=== PATIENT | female | born 1995 | race Caucasian/White ===

== ENCOUNTER 2021-07-05 12:22 | Emergency (ER) | payer SELFPAY ==
--- NOTE | 2021-07-05 12:31 | ED.FEMALEGU ---
HPI - Female Genitourinary General Chief complaint: Urogenital-Female Stated complaint: Rt Abdominal Pain,Painful Urination Time Seen by Provider: 07/05/21 12:26 Source: patient and RN notes reviewed Mode of arrival: ambulatory History of Present Illness HPI Narrative: This is a 26-year-old female with a presented to urgent care with complaints of abdominal pain and painful urination for the last 4 days. Patient does have a history of chronic UTI and have been treated in the past for urinary tract infection. Patient did not do anything at home to relieve her symptoms. The patient denies SOB, CP, palpitation, extremity numbness, lightheadedness, dizziness, constipation, hematuria diarrhea, chills, or fever. Patient positive for UTI MD elicited complaint: dysuria and UTI Related Data Allergies Allergy/AdvReac Type Severity Reaction Status Date / Time ondansetron Allergy Intermediate THROAT Verified 04/14/19 13:06 SWELLING citalopram Allergy Unknown Verified 10/23/11 10:53 eletriptan Allergy Unknown Verified 05/08/12 16:16 sumatriptan Allergy Unknown Verified 05/09/12 11:54 Review of Systems Review of Systems: A 14 organ system Review of Systems was performed and pertinent positives included in the HPI, otherwise remaining ROS is negative. [facility] Family History Family History (Updated 07/05/21 @ 12:32 by SVETLANA Xavier) Other Family history non-contributory Social History Social History Smoking status: Never smoker Exam Narrative: GENERAL: This is a well-nourished, well-developed patient, in no apparent distress. HEAD: normocephalic, atraumatic. EYES: PERRL. Sclera clear/white. Vision is grossly intact. EARS: External ears normal, auditory canals clear and without drainage, TMs normal without perforation. Hearing grossly intact. NOSE: External nose normal with no obvious nasal discharge, nares without redness, no rhinorrhea. THROAT: Mucous membranes moist, posterior pharynx clear. NECK: Neck supple, non-tender without lymphadenopathy, masses or thyromegaly. CARDIOVASCULAR: Regular rate and rhythm without murmurs, gallops, or rubs. RESPIRATORY: Clear to auscultation. Breath sounds equal bilaterally. No wheezes, rales, or rhonchi. GASTROINTESTINAL: Abdomen soft, non-tender, nondistended. Bowel sounds are active. No hepato-splenomegaly, or palpable masses. No guarding. CVA negative SKIN: warm, intact with no suspicious lesions or rash, good texture and turgor. NEURO: awake, alert, and oriented to person, place and time. There were no obvious focal neurologic abnormalities. Steady gait EXTREMITIES: Normal range of motion. No edema. No calf tenderness. Negative Homans sign bilaterally. BACK: Nontender without deformity or crepitance. No flank tenderness. Course Course Emergency Course: Patient UA positive for UTI will discharge home with Bactrim twice daily x7 days and Azo Vital Signs Vital signs: Vital Signs Temperature 98.4 F 07/05/21 12:44 Pulse Rate 94 07/05/21 12:44 Respiratory Rate 16 07/05/21 12:44 Blood Pressure 136/84 07/05/21 12:44 Pulse Oximetry 99 07/05/21 12:44 Temperature 98.4 F 07/05/21 12:44 Pulse Rate 94 07/05/21 12:44 Respiratory Rate 16 07/05/21 12:44 Blood Pressure 136/84 07/05/21 12:44 Pulse Oximetry 99 07/05/21 12:44 MDM - Female Genitourinary Differential Diagnosis Differential diagnosis: Likely urinary tract infection and vaginitis Lab Data Lab results narrative: UA positive for UTI Discharge Plan Discharge Clinical Impression: Urinary tract infection Patient Disposition: Home, Self-Care Condition: Stable Instructions: Antibiotic Form, Urinary Tract Infection in Women (ED) Additional Instructions: Follow up with your provider within 1-2 weeks Home Care: 1. Be sure to finish taking all the antibiotics prescribed. 2. Encourage fluids. 3. Some approaches to pr
[2021-07-05 12:44] VITALS: BP 136/84; PULSE 94; RESP 16; TEMP 36.9; O2SAT 99
== END 2021-07-05 12:55 | disposition home or self-care (01) ==
PROVIDERS: Emergency Provider Nurse Practitioner
DX: N39.0 Urinary tract infection, site not specified (principal)
CPT/HCPCS: 81003; 87086; 87088; 99213; G0463

== ENCOUNTER 2022-07-03 10:04 | Emergency (ER) | payer MEDICAID, SELFPAY ==
[2022-07-03 10:30] VITALS: BP 133/83; PULSE 90; RESP 18; TEMP 36.6; O2SAT 100
--- NOTE | 2022-07-03 10:53 | ED.URI ---
HPI - URI/Sore Throat General Chief Complaint: Upper Respiratory Infection Stated Complaint: sorethroat Time Seen by Provider: 07/03/22 10:35 Source: patient Mode of arrival: ambulatory Limitations: no limitations History of Present Illness HPI Narrative: Patient presents today complaining of a 3 day history of sore throat with low-grade fever. Reports some intermittent bilateral ear pain that started yesterday as well. Denies any additional symptoms to include shortness of breath, difficulty swallowing, congestion or rhinorrhea. She currently rates her pain 04/18 and has been taking ibuprofen and using Chloraseptic spray without relief. Related Data Home Medications Medication Instructions Recorded Confirmed Copper Iud 07/03/22 Allergies Allergy/AdvReac Type Severity Reaction Status Date / Time ondansetron Allergy Intermediate THROAT Verified 07/03/22 10:35 SWELLING citalopram Allergy Unknown Unknown Verified 07/03/22 10:35 eletriptan Allergy Unknown Unknown Verified 07/03/22 10:35 sumatriptan Allergy Unknown Unknown Verified 07/03/22 10:35 Review of Systems Review of Systems: CONSTITUTIONAL: Denies body aches, chills, or sweats.+ low-grade fever EYES: Denies visual changes, redness, or discharge. ENT: Denies rhinorrhea, congestion.+ sore throat, bilateral ear pain CARDIOVASCULAR: Denies chest pain, palpitations, or edema. RESPIRATORY: Denies cough or dyspnea. GASTROINTESTINAL: Denies abdominal pain, nausea, vomiting, or diarrhea. GENITOURINARY: Denies dysuria or hematuria. SKIN: Denies rash, itching, or wounds. MUSCULOSKELETAL: Denies back pain, joint pain, or myalgia. NEUROLOGIC: Denies headache, numbness, tingling, or weakness. PSYCH: Denies depression or anxiety. [facility] Family History Family History Other Family history non-contributory Social History Social History Smoking status: Never smoker Comments At time of signature, I have reviewed and agree with nursing past medical, surgical, social and family history unless otherwise noted. Please see nursing chart for further information. There is no relevant family history pertinent to the presenting complaint Exam Narrative: GENERAL: Well-appearing, well-nourished, and in no acute distress. HEAD: Normocephalic, atraumatic. EYES: EOMI. No redness or drainage. Conjunctivae normal. ENT: Mucous membranes pink and moist. Nares clear. No rhinorrhea. TMs normal bilaterally. Throat mildly erythematous. Small amount of white postnasal drainage. Uvula midline. NECK: Normal AROM. Supple. No lymphadenopathy. CHEST: No respiratory distress. Clear to auscultation. HEART: Regular rate and rhythm. No murmur appreciated. Normal peripheral pulses. EXTREMITIES: Normal range of motion. No edema. SKIN: Warm, dry, no rash. Capillary refill normal. Normal skin turgor. NEURO: No focal deficits. Alert and oriented x3. Gait steady. PSYCH: Normal affect. No signs of depression or anxiety. Course Course Level of Care: Express Care Visit Vital Signs Vital signs: Vital Signs Temperature 97.8 F 07/03/22 10:30 Pulse Rate 90 07/03/22 10:30 Respiratory Rate 18 07/03/22 10:30 Blood Pressure 133/83 07/03/22 10:30 Pulse Oximetry 100 07/03/22 10:30 Oxygen Delivery Room Air 07/03/22 10:30 Temperature 97.8 F 07/03/22 10:30 Pulse Rate 90 07/03/22 10:30 Respiratory Rate 18 07/03/22 10:30 Blood Pressure 133/83 07/03/22 10:30 Pulse Oximetry 100 07/03/22 10:30 Oxygen Delivery Room Air 07/03/22 10:30 Reviewed. Pt has been instructed to follow up with her PCP regarding her elevated blood pressure today. MDM - URI/Sore Throat Differential Diagnosis Differential diagnosis: Likely upper respiratory infection, sinusitis, viral infection, pharyngitis and other (Strep throat) Lab Data Attestation: I reviewe
== END 2022-07-03 11:06 | disposition home or self-care (01) ==
PROVIDERS: Emergency Provider Nurse Practitioner
DX: J02.9 Acute pharyngitis, unspecified (principal)
CPT/HCPCS: 87081; 87880; 99213; G0463

== ENCOUNTER 2023-09-29 11:58 | Emergency (ER) | payer SELFPAY ==
--- NOTE | ~2023-09-29 | XR_ITS ---
XR ankle RT min 3V DATE: 09/29/2023 12:16 INDICATION: Twisted ankle. Ankle pain. TECHNIQUE: 4 views COMPARISON: None FINDINGS: No fracture or dislocation of the ankle or disruption of the ankle mortise. No periosteal r eaction or bone destruction. IMPRESSION: Negative Reviewed, dictated and finalized at location A. T MANAGER IMPRESSION: Negative
[2023-09-29 12:06] VITALS: BP 114/88; PULSE 89; RESP 16; TEMP 36.6; O2SAT 99
--- NOTE | 2023-09-29 12:29 | ED.LOWEXIN ---
HPI - Extremity Injury (Lower) General Chief Complaint: Extremity Injury, Lower Stated Complaint: Injured ankle Time Seen by Provider: 09/29/23 12:20 Source: patient and RN notes reviewed Mode of arrival: wheelchair Limitations: no limitations History of Present Illness HPI Narrative: Patient presents today complaining of right ankle injury. Patient states she fell in a pothole 1 hour prior to arrival injuring her ankle. Currently rates her pain 7/10. No [id number] interventions prior to arrival. She does report some tingling to the lateral ankle and lower leg. Related Data Home Medications Medication Instructions Recorded Confirmed sertraline 100 mg tablet 100 mg PO DAILY 09/29/23 09/29/23 Allergies Allergy/AdvReac Type Severity Reaction Status Date / Time ondansetron Allergy Intermediate THROAT Verified 09/29/23 12:12 SWELLING citalopram Allergy Unknown Unknown Verified 09/29/23 12:12 eletriptan Allergy Unknown Unknown Verified 09/29/23 12:12 sumatriptan Allergy Unknown Unknown Verified 09/29/23 12:12 Review of Systems Review of Systems: CONSTITUTIONAL: Denies body aches, fever, chills, or sweats. EYES: Denies visual changes, redness, or discharge. ENT: Denies rhinorrhea, congestion, sore throat, or otalgia. CARDIOVASCULAR: Denies chest pain, palpitations, or edema. RESPIRATORY: Denies cough or dyspnea. GASTROINTESTINAL: Denies abdominal pain, nausea, vomiting, or diarrhea. GENITOURINARY: Denies dysuria or hematuria. SKIN: Denies rash, itching, or wounds. MUSCULOSKELETAL: Denies back pain, or myalgia.+ right ankle injury NEUROLOGIC: Denies headache, numbness, or weakness.+ tingling right ankle PSYCH: Denies depression or anxiety. [facility] Family History Family History Other Family history non-contributory Social History Social History Smoking status: Never smoker Comments At time of signature, I have reviewed and agree with nursing past medical, surgical, social and family history unless otherwise noted. Please see nursing chart for further information. There is no relevant family history pertinent to the presenting complaint Exam Narrative: GENERAL: Well-appearing, well-nourished, and in no acute distress. HEAD: Normocephalic, atraumatic. EYES: EOMI. No redness or drainage. Conjunctivae normal. ENT: Mucous membranes pink and moist. NECK: Normal AROM. . CHEST: No respiratory distress. EXTREMITIES: Right ankle: Tenderness and mild edema with some developing ecchymosis to the lateral ankle. No tenderness medially or posteriorly. Distal sensation intact. Capillary. Pedal pulse normal. Almost full range of motion of the ankle, but somewhat limited due to pain SKIN: Warm, dry, no rash. Capillary refill normal. Normal skin turgor. NEURO: No focal deficits. Alert and oriented x3. Gait steady. PSYCH: Normal affect. No signs of depression or anxiety. Course Course Level of Care: Express Care Visit Vital Signs Vital signs: Vital Signs Temperature 98 F 09/29/23 12:06 Pulse Rate 89 09/29/23 12:06 Respiratory Rate 16 09/29/23 12:06 Blood Pressure 114/88 09/29/23 12:06 Pulse Oximetry 99 09/29/23 12:06 Temperature 98 F 09/29/23 12:06 Pulse Rate 89 09/29/23 12:06 Respiratory Rate 16 09/29/23 12:06 Blood Pressure 114/88 09/29/23 12:06 Pulse Oximetry 99 09/29/23 12:06 Reviewed MDM - Extremity Injury (Lower) MDM Narrative Medical decision making narrative: Pranay wrap applied by ankle tech. Patient also lies crutches for ambulation for the next days. Discussed x-ray results with patient as well conservative treatment and follow-up if symptoms do not improve. No prescription medications indicated at this time. Anticipatory guidance given. Differential Diagnosis Differential diagnosis: Likely ankle sprain and str
== END 2023-09-29 12:36 | disposition home or self-care (01) ==
PROVIDERS: Emergency Provider Nurse Practitioner; PCP Family Medicine
DX: S93.401A Sprain of unspecified ligament of right ankle, initial encounter (principal); W17.2XXA Fall into hole, initial encounter
CPT/HCPCS: 73610; 99213; G0463

== ENCOUNTER 2025-08-10 15:37 | Emergency (ER) | payer OTHER, SELFPAY ==
--- NOTE | ~2025-08-10 | XR_ITS ---
XR hip LT min 2V 08/10/2025 16:17 INDICATION: Left hip pain after fall PROCEDURE: 2 views left hip COMPARISON: No prior studies for comparison. FINDINGS: Fracture, dislocation or subluxation is not identified. There is an IUD in the pelvis. The soft tissues appear within normal limits. No foreign bodies are identified. IMPRESSION: 1: NO ACUTE BONE OR JOINT ABNORMALITY IDENTIFIED. Reviewed, dictated and finalized at location I. T SAMPLER
--- NOTE | ~2025-08-10 | XR_ITS ---
XR knee LT 3V 08/10/2025 16:17 INDICATION: Left knee pain PROCEDURE: 3 views left knee COMPARISON: 01/18/2015 FINDINGS: Fracture, dislocation or subluxation is not identified. No significant joint effusion. The soft tissues appear within normal limits. No foreign bodies are identified. IMPRESSION: 1: NO ACUTE BONE OR JOINT ABNORMALITY IDENTIFIED. Reviewed, dictated and finalized at location I. ROAD SUPERVISOR OF ENGINES
--- NOTE | ~2025-08-10 | XR_ITS ---
XR ankle LT 2V 08/10/2025 16:17 INDICATION: Left ankle pain PROCEDURE: 2 views left ankle COMPARISON: 07/15/2006 FINDINGS: Fracture, dislocation or subluxation is not identified. The soft tissues appear within normal limits. No foreign bodies are identified. IMPRESSION: 1: NO ACUTE BONE OR JOINT ABNORMALITY IDENTIFIED. Reviewed, dictated and finalized at location I. DISPATCHER
[2025-08-10 15:47] VITALS: BP 155/117; PULSE 83; RESP 17; TEMP 36.6; O2SAT 99
--- OUTSIDE RECORDS SUMMARY | 2025-08-10 16:45 | XMS_ITS | Data Portability ---
Author Organization [place] [facility], Main Office Address [address] [place] [address] Care Team Providers Care Reprographics Associate Name Role Phone SHAUN NARANJO Primary Care Provider [phone] Assessment Encounter Date Assessment Date Assessment LastModified by Organization Details LastModified Time 02/05/2023 02/05/2023 27 yo F with - HLD, new - RLQ PAIN - SACRAL PAIN, chronic - EASY BRUISING - DEPRESSION - ANXIETY - CHRONIC INSOMNIA - ADHD - GERD - OBESITY I Annual labs: 01/23/23. D/w pt in detail about her findings, recent labs and further plan of care. Meds as directed. OTC donut pillow as directed. Advised pt to talk with close friend/family member on a regular basis. Educated about alarming symptoms to monitor at home and call us back Or get checked in ED. Pt verbalized understanding it. Diet and exercise explained in detail. Educated about different options for her. F/u with sleep study. F/u with Psych as per schedule. Cont f/u with Counsellor (Jo) as per schedule. Offered to refer to Hemat; but pt declined. HM: WWE - 01/29/23, normal. Cont f/u with POT FILLER/Gyne as per schedule. Flu, Tdap, Gardasil - At pharmacy/HD. F/u in 3-4 weeks. US, x-ray before next visit. Lipids in 06/01. Annual labs in 01/30. [email or web address] Not available 02/05/2023 16:01:54 05/01/2023 05/01/2023 28 yo F with - HLD, new - RLQ PAIN - SACRAL PAIN, chronic - EASY BRUISING - DEPRESSION - ANXIETY - CHRONIC INSOMNIA - ADHD - GERD - OBESITY I Annual labs: 01/23/23. D/w pt in detail about her findings, recent labs and further plan of care. Advised pt to get testing done soon. Meds as directed. Cont OTC donut pillow as directed. Advised pt to talk with close friend/family member on a regular basis. Educated about alarming symptoms to monitor at home and call us back Or get checked in ED. Pt verbalized understanding it. Diet and exercise explained in detail. Educated about different options for her. F/u with sleep study. F/u with Psych as per schedule. Cont f/u with Counsellor (Jo) as per schedule. Offered to refer to Hemat; but pt declined. HM: WWE - 01/29/23, normal. Cont f/u with POT FILLER/Gyne as per schedule. Flu, Tdap, Gardasil - At pharmacy/HD. F/u in 3-4 weeks. US, x-ray before next visit. Lipids in 06/01. Annual labs in 01/30. [email or web address] Not available 05/01/2023 12:28:41 Plan of Treatment Reminders Order Date Submit Date Provider Last Modified By Organization Details Last Modified Time Details Appointments None recorded. Lab lipid panel, serum 2022 023 [email or web address] [facility] (Lab), [address] [place], [address], 3 14:52:50 pap, IG + HPV 2022 023 [facility] (Lab), [address] [place], [address], 3 18:11:43 Referral gynecologis t referral - Please call patient to schedule an appointment . Thank you. 2024 025 [email or web address] [place], [address], [facility], [place], [address], 5 08:59:20 psychiatris t referral [address], [address] [place] [address] , [place], [address], 3 14:32:29 Procedures None recorded. Surgeries None recorded. Imaging XR, kidney + ureter + bladder [address] ([facility]), [address] [place], [address], 5 14:08:05 US, pelvis, transabdomi nal + transvagina l - Please call patient to schedule. [address] ([facility]), [address] [place], [address], 5 10:14:15 Medication Orders Medrol (Andrei) 4 mg tablets in a dose pack 2024 025 [facility]/Pharmacy #2510, [address] [place], [address], 5 12:47:40 amoxicillin 875 mg-potassiu m clavulanate 125 mg tablet 2024 025 [facility]/Pharmacy #2510, [address] [place], [address], 5 05:01:45 tamsulosin 0.4 mg capsule [address]/Pharmacy #2510, [address] [place], [address], 5 12:33:04 tramadol 50 mg tablet [address]/Pharmacy #2510, [address] [place], [address], 5 12:33:06 Wegovy 0.5 mg/0.5 mL subcutaneou s pen injector [address]/Pharmacy #2510, [address] [place], [address], 5 14:40:46 buspirone 15 mg tablet 2022 023 [facility] [address] [facility], [place], [place], [id number], 5 14:40:28 sertraline 100 mg tablet 2022 023 [address] [facility] [address] [facility], [place], [place], [id number], 5 14:40:41 trazodone 50 mg tablet [address] [facility]67, [address] [place], [place], [id number], 5 14:40:43 Wegovy 0.25 mg/0.5 mL subcutaneou s pen injector 2022 023 [email or web address] [facility]267, [address] [place], [place], [id number], 3 12:28:53 buspirone 15 mg tablet [address] [facility]69546, [address] [place], [place], [id number], 5 14:40:28 sertraline 100 mg tablet 2022 023 [address] [facility] [address] [place], [place], [id number], 5 14:40:41 trazodone 50 mg tablet 2022 023 [address] [facility] [facility] [address] [place], [place], [id number], 14:40:43 Patient TargetsNo targets recorded. Patient Instructions Encounter Date Encounter Id Patient Instructions Last Modified By Organization Details Last Modified Time 01/29/2023 [id number] FU annually for WWE after 01/31/24 [email or web address] Not available 01/29/2023 11:13:20 02/05/2023 [id number] high cholesterol : care instructions [email or web address] Not available 02/05/2023 15:56:29 05/01/2023 [id number] high cholesterol : care instructions [email or web address] Not available 05/01/2023 12:24:14 Reason for Referral Psychiatrist Referral for De pressive disorder Referring Physician: Shaun Naranjo [facility] Medicine, Encounter Date: 02/05/2023 [facility] Referral for Pa in in pelvis Please call patient to schedule an appointment. Thank you. Referring Physician: Corazon Wilkinson [facility] Medicine, Encounter Date: 12/31/2024 Results Created Date Observation Date Name Description Value Unit Range Abnormal Flag Note LastModifiedBy Organization Detail LastModifiedTime 01/24/2001/23/2023 CBC/C OMPLE TE BLD COUNT W/DIF F white blood cells 5.8 x10'3 /uL 4.2-10 .8 Not Available [facility] (Lab) [address] [place], [address], 01/23/2023 19:02:17 01/24/2001/23/2023 CBC/C OMPLE TE BLD COUNT W/DIF F red blood cells 4.71 x10'6 /uL 3.80-5 .20 Not Available [facility] (Lab) [address] [place], [address], 01/23/2023 19:02:17 01/24/20 23 01/23/2023 CBC/C OMPLE TE BLD COUNT W/DIF F hemoglobin 14.4 g/dL 12.0-1 5.6 Not Available [facility] (Lab) [address] [place], [address], 01/23/2023 19:02:17 01/24/20 23 01/23/2023 CBC/C OMPLE TE BLD COUNT W/DIF F hematocrit 43.1 % 35.7-4 5.7 Not Available [facility] (Lab) [address] [place], [address], 01/23/2023 19:02:17 01/24/20 23 01/23/2023 CBC/C OMPLE TE BLD COUNT W/DIF F mean red cell volume 91.5 fL 82.0-9 9.0 Not Available [facility] (Lab) [address] [place], [address], 01/23/2023 19:02:17 01/24/20 23 01/23/2023 CBC/C OMPLE TE BLD COUNT W/DIF F mean red cell hemoglobin 30.6 pg 27.0-3 3.0 Not Available [facility] (Lab) [address] [place], [address], 01/23/2023 19:02:17 01/24/20 23 01/23/2023 CBC/C OMPLE TE BLD COUNT W/DIF F mean RBC HGB concentratio n 33.4 g/dL 31.0-3 6.0 Not Available [facility] (Lab) [address] [place], [address], 01/23/2023 19:02:17 01/24/20 23 01/23/2023 CBC/C OMPLE TE BLD COUNT W/DIF F red cell distribution width 13.0 % 11.8-1 5.5 Not Available [facility] (Lab) [address] [place], [address], 01/23/2023 19:02:17 01/24/20 23 01/23/2023 CBC/C OMPLE TE BLD COUNT W/DIF F platelets 343 x10'3 /uL 150-40 0 Not Available [facility] (Lab) [address] [place], [address], 01/23/2023 19:02:17 01/24/20 23 01/23/2023 CBC/C OMPLE TE BLD COUNT W/DIF F mean platelet volume 9.9 fL 9.0-12 .4 Not Available [facility] (Lab) [address] [place], [address], 01/23/2023 19:02:17 01/24/20 23 01/23/2023 CBC/C OMPLE TE BLD COUNT W/DIF F neutrophils 62.4 % 39.0-7 2.0 Not Available [facility] (Lab) [address] [place], [address], 01/23/2023 19:02:01/24/20 23 01/23/2023 CBC/C OMPLE TE BLD COUNT W/DIF F lymphocytes 29.7 % 16.0-4 7.0 Not Available [facility] (Lab) [address] [place], [address], 01/23/2023 19:02:01/24/20 23 01/23/2023 CBC/C OMPLE TE BLD COUNT W/DIF F monocytes 5.8 % 5.0-12 .0 Not Available [facility] (Lab) [address] [place], [address], 01/23/2023 19:02:17 01/24/20 23 01/23/2023 CBC/C OMPLE TE BLD COUNT W/DIF F eosinophils 1.2 % 1.0-7. 0 Not Available [facility] (Lab) [address] [place], [address], 01/23/2023 19:02:17 01/24/20 23 01/23/2023 CBC/C OMPLE TE BLD COUNT W/DIF F basophils 0.7 % 0.0-2. 0 Not Available [facility] (Lab) [address] [place], [address], 01/23/2023 19:02:17 01/24/20 23 01/23/2023 CBC/C OMPLE TE BLD COUNT W/DIF F immature granulocytes 0.2 % 0.00-0 .50 Not Available [facility] (Lab) [address] [place], [address], 01/23/2023 19:02:17 01/24/20 23 01/23/2023 CBC/C OMPLE TE BLD COUNT W/DIF F neutrophils, absolute count 3.63 x10'3 /uL 1.5-8. 0 Not Available [facility] (Lab) [address] [place], [address], 01/23/2023 19:02:17 01/24/20 23 01/23/2023 CBC/C OMPLE TE BLD COUNT W/DIF F lymphocytes, absolute count 1.73 x10'3 /uL 1.07-3 .43 Not Available [facility] (Lab) [address] [place], [address], 01/23/2023 19:02:17 01/24/20 23 01/23/2023 CBC/C OMPLE TE BLD COUNT W/DIF F monocytes, absolute count 0.34 x10'3 /uL 0.29-0 .99 Not Available [facility] (Lab) [address] [place], [address], 01/23/2023 19:02:17 01/24/20 23 01/23/2023 CBC/C OMPLE TE BLD COUNT W/DIF F eosinophils, absolute count 0.07 x10'3 /uL 0.02-0 .53 Not Available [facility] (Lab) [address] [place], [address], 01/23/2023 19:02:17 01/24/20 23 01/23/2023 CBC/C OMPLE TE BLD COUNT W/DIF F basophils, absolute count 0.04 x10'3 /uL 0.01-0 .08 Not Available [facility] (Lab) [address] [place], [address], 01/23/2023 19:02:17 01/24/20 23 01/23/2023 CBC/C OMPLE TE BLD COUNT W/DIF F immature granulocytes ,absolute 0.01 x10'3 /uL 0.00-0 .05 Not Available [facility] (Lab) [address] [place], [address], 01/23/2023 19:02:17 01/24/2001/23/2023 CBC/C OMPLE TE BLD COUNT W/DIF F nucleated red blood cells 0.0 % -0 Not Available [facility] (Lab) [address] [place], [address], 01/23/2023 19:02:17 01/24/20 23 01/23/2023 CBC/C OMPLE TE BLD COUNT W/DIF F NRBC# 0.00 x10'3 /uL Not Available [facility] (Lab) [address] [place], [address], 01/23/2023 19:02:17 01/24/20 23 01/23/2023 PROTI ME W/INR protime 10.0 secon ds 9.5-11 .5 Not Available [facility] (Lab) [address] [place], [address], 01/23/2023 19:09:55 01/24/2001/23/2023 PROTI ME W/INR INR 1.0 INR INDIC ATION S 2.0 - 3.0 PROPH YLAXI S: VENOU S THROM BOSIS (HIGH RISK SURGE RY) AND SYSTE GUSTAVO EMBOL ISM (TISS UE HEART VALVE S, AMI VALVU LAR HEART DISEA SE AND ATRIA L FIBRI LLATI ON). TREAT MENT: VENOU S THROM BOSIS AND PULMO NARY EMBOL ISM BILEA FLET MECHA NICAL VALVE S IN AORTI C POSIT ION. 2.5 - 3.5 MECHA NICAL PROST HETIC HEART VALVE S (TILT ING DISK VALVE S AND BILEA FLET MECHA NICAL VALVE S IN IBAN L POSIT ION). PREVE NTION OF RECUR RENT MYOCA RDIAL INFAR CTION . ANTIP HOSPH OLIPI D SYNDR OME. Not Available [facility] (Lab) [address] [place], [address], 01/23/2023 19:09:55 01/24/20 23 01/23/2023 APTT APTT 27.8 secon ds 23.4-3 1.4 PLEAS E NOTE NEW APTT REFER ENCE RANGE EFFEC TIVE 08/27 . Not Available [facility] (Lab) [address] [place], [address], 01/23/2023 19:10:00 01/24/20 23 01/23/2023 URINA LYSIS COMPL ETE/I RIS W/RFX color LIGHT- YELLOW Not Available [facility] (Lab) [address] [place], [address], 01/23/2023 19:10:51 01/24/20 23 01/23/2023 URINA LYSIS COMPL ETE/I RIS W/RFX appear TURBID abnormal Not Available [facility] (Lab) [address] [place], [address], 01/23/2023 19:10:51 01/24/20 23 01/23/2023 URINA LYSIS COMPL ETE/I RIS W/RFX specific gravity 1.014 1.001- 1.030 Not Available [facility] (Lab) [address] [place], [address], 01/23/2023 19:10:51 01/24/20 23 01/23/2023 URINA LYSIS COMPL ETE/I RIS W/RFX pH 6.0 pH_un its 5.0-9. 0 Not Available [facility] (Lab) [address] [place], [address], 01/23/2023 19:10:51 01/24/20 23 01/23/2023 URINA LYSIS COMPL ETE/I RIS W/RFX leukocytes 75 evan/u L negati ve- abnormal Not Available [facility] (Lab) [address] [place], [address], 01/23/2023 19:10:51 01/24/20 23 01/23/2023 URINA LYSIS COMPL ETE/I RIS W/RFX nitrite NEGATI VE negati ve- Not Available [facility] (Lab) [address] [place], [address], 01/23/2023 19:10:51 01/24/20 23 01/23/2023 URINA LYSIS COMPL ETE/I RIS W/RFX protein NEGATI VE mg/dL negati ve- Not Available [facility] (Lab) [address] [place], [address], 01/23/2023 19:10:51 01/24/20 23 01/23/2023 URINA LYSIS COMPL ETE/I RIS W/RFX glucose NORMAL mg/dL normal - Not Available [facility] (Lab) [address] [place], [address], 01/23/2023 19:10:51 01/24/20 23 01/23/2023 URINA LYSIS COMPL ETE/I RIS W/RFX ketones NEGATI VE mg/dL negati ve- Not Available [facility] (Lab) [address] [place], [address], 01/23/2023 19:10:51 01/24/20 23 01/23/2023 URINA LYSIS COMPL ETE/I RIS W/RFX urobilinogen NORMAL mg/dL normal - Not Available [facility] (Lab) [address] [place], [address], 01/23/2023 19:10:51 01/24/20 23 01/23/2023 URINA LYSIS COMPL ETE/I RIS W/RFX bilirubin NEGATI VE mg/dL negati ve- Not Available [facility] (Lab) [address] [place], [address], 01/23/2023 19:10:51 01/24/20 23 01/23/2023 URINA LYSIS COMPL ETE/I RIS W/RFX blood 0.2 mg/dL negati ve- abnormal Not Available [facility] (Lab) [address] [place], [address], 01/23/2023 19:10:51 01/24/20 23 01/23/2023 URINA LYSIS COMPL ETE/I RIS W/RFX white blood cells 0-8 /i??h pfi?? 0-8 Not Available [facility] (Lab) [address] [place], [address], 01/23/2023 19:10:51 01/24/20 23 01/23/2023 URINA LYSIS COMPL ETE/I RIS W/RFX red blood cells 0-4 /i??h pfi?? 0-4 Not Available [facility] (Lab) [address] [place], [address], 01/23/2023 19:10:51 01/24/20 23 01/23/2023 URINA LYSIS COMPL ETE/I RIS W/RFX bacteria NONE Not Available [facility] (Lab) [address] [place], [address], 01/23/2023 19:10:51 01/24/20 23 01/23/2023 URINA LYSIS COMPL ETE/I RIS W/RFX mucous OCCASI ONAL /i??l pfi?? abnormal Not Available [facility] (Lab) [address] [place], [address], 01/23/2023 19:10:51 01/24/20 23 01/23/2023 URINA LYSIS COMPL ETE/I RIS W/RFX squamous epithelial PACKED FIELD /i??l pfi?? abnormal Not Available [facility] (Lab) [address] [place], [address], 01/23/2023 19:10:51 01/24/20 23 01/23/2023 COMPR EHENS ALANA METAB OLIC PANEL sodium 136 mmol/ L 137-14 5 low Not Available [facility] (Lab) [address] [place], [address], 01/23/2023 19:34:26 01/24/20 23 01/23/2023 COMPR EHENS ALANA METAB OLIC PANEL potassium 4.4 mmol/ L 3.5-5. 1 Not Available [facility] (Lab) [address] [place], [address], 01/23/2023 19:34:26 01/24/20 23 01/23/2023 COMPR EHENS ALANA METAB OLIC PANEL chloride 106 mmol/ L 98-107 Not Available [facility] (Lab) [address] [place], [address], 01/23/2023 19:34:26 01/24/20 23 01/23/2023 COMPR EHENS ALANA METAB OLIC PANEL carbon dioxide 20 mmol/ L 22-30 low Not Available [facility] (Lab) [address] [place], [address], 01/23/2023 19:34:26 01/24/20 23 01/23/2023 COMPR EHENS ALANA METAB OLIC PANEL anion gap 14.4 mmol/ L 14-22 Not Available [facility] (Lab) [address] [place], [address], 01/23/2023 19:34:26 01/24/20 23 01/23/2023 COMPR EHENS ALANA METAB OLIC PANEL glucose 108 mg/dL 70-99 high Not Available [facility] (Lab) [address] [place], [address], 01/23/2023 19:34:26 01/24/20 23 01/23/2023 COMPR EHENS ALANA METAB OLIC PANEL BUN 14 mg/dL 8-19 Not Available [facility] (Lab) [address] [place], [address], 01/23/2023 19:34:26 01/24/20 23 01/23/2023 COMPR EHENS ALNAA METAB OLIC PANEL creatinine 0.66 mg/dL 0.66-1 .25 Not Available [facility] (Lab) [address] [place], [address], 01/23/2023 19:34:26 01/24/2001/23/2023 COMPR EHENS ALANA METAB OLIC PANEL GFR >60 Refer ence Range : [place] ge GFR Healt hy Adult : >60 mL/mi n/1.7 3 m2 Chron ic Kidne y Disea se: 15-60 mL/mi n/1.7 3 m2 Kidne y Failu re: <15/m L/min /1.73 m2 www.n iddk. nih.g ov The MDRD study equat ion has not been valid ated in child zoie <18 years of age; pregn ant women ; the elder ly >85 years of age; or in some racia l or ethni c subgr oups, such as Hismt nics. Outsi de the valid ated evy eters , estim ated GFR is less accur ate, requi ring clini kehinde judgm ent on a case- by-ca se basis . Clini kehinde inter preta tion for other races and ages must be made by the clini debbie. The MDRD study equat ion has not been valid ated for the evalu ation of serum creat inine relat ed to nutri dmitriy l statu s or medic ation usage . For perso ns <18 years of age, a pedia tric GFR calcu lator is avail able on the NKF websi te: https ://dianne trejo.melchor zamorano.o rip/pr ofess ional s/kdo qi/gf r_cal culat or Not Available [facility] (Lab) [address] [place], [address], 01/23/2023 19:34:26 01/24/20 23 01/23/2023 COMPR EHENS ALANA METAB OLIC PANEL alkaline phosphatase 72 U/L 38-126 Not Available [facility] (Lab) [address] [place], [address], 01/23/2023 19:34:26 01/24/20 23 01/23/2023 COMPR EHENS ALANA METAB OLIC PANEL alanine aminotransfe rase 22 U/L 0-35 Not Available [facility] (Lab) [address] [place], [address], 01/23/2023 19:34:26 01/24/20 23 01/23/2023 COMPR EHENS ALANA METAB OLIC PANEL aspartate aminotransfe rase 26 U/L 15-37 Not Available [facility] (Lab) [address] [place], [address], 01/23/2023 19:34:26 01/24/20 23 01/23/2023 COMPR EHENS ALANA METAB OLIC PANEL bilirubin, total 0.60 mg/dL 0.20-1 .30 Not Available [facility] (Lab) [address] [place], [address], 01/23/2023 19:34:26 01/24/20 23 01/23/2023 COMPR EHENS ALANA METAB OLIC PANEL calcium 9.1 mg/dL 8.4-10 .2 Not Available [facility] (Lab) [address] [place], [address], 01/23/2023 19:34:26 01/24/20 23 01/23/2023 COMPR EHENS ALANA METAB OLIC PANEL total protein 7.2 g/dL 6.3-8. 2 Not Available [facility] (Lab) [address] [place], [address], 01/23/2023 19:34:26 01/24/20 23 01/23/2023 COMPR EHENS ALANA METAB OLIC PANEL albumin 4.3 g/dL 3.4-5. 0 Not Available [facility] (Lab) [address] [place], [address], 01/23/2023 19:34:26 01/24/20 23 01/23/2023 COMPR EHENS ALANA METAB OLIC PANEL globulin 2.9 g/dL 2.6-4. 2 Not Available [facility] (Lab) [address] [place], [address], 01/23/2023 19:34:26 01/24/20 23 01/23/2023 COMPR EHENS ALANA METAB OLIC PANEL A/G ratio 1.5 ratio 1.0-2. 0 Not Available [facility] (Lab) [address] [place], [address], 01/23/2023 19:34:26 01/24/20 23 01/23/2023 LIPID PANEL cholesterol 206 mg/dL 140-19 9 high NIH HALLIE NSUS RECOM MENDA TION FOR GINNY STERO L: ADULT CHILD LOW RISK: <200 <170 BORDE RLINE : <200- 239 ----- HIGH RISK: >240 >200 Not Available [facility] (Lab) [address] [place], [address], 01/23/2023 19:34:29 01/24/2001/23/2023 LIPID PANEL triglyceride s 118 mg/dL 0-150 NIH HALLIE NSUS REPOR T RECOM MENDA TION FOR TRIGL YCERI BIBI: ADULT CHILD LOW RISK: <150 ----- BODER LINE: 150-1 99 ----- HIGH RISK: >200 ----- Not Available [facility] (Lab) [address] [place], [address], 01/23/2023 19:34:29 01/24/20 23 01/23/2023 LIPID PANEL HDL cholesterol 67 mg/dL 40- Not Available [facility] (Lab) [address] [place], [address], 01/23/2023 19:34:29 01/24/20 23 01/23/2023 LIPID PANEL LDL cholesterol, calculated 115 mg/dL 0-130 NIH HALLIE NSUS REPOR T RECOM MENDA TIONS FOR LDL: ADULT CHILD LOW RISK <130 <110 (OPTI MAL LDL) <100 ----- BORDE RLINE : 130-1 59 ----- HIGH RISK: >160 >130 A TRIGL YCERI DE RESUL T >400 INVAL IDATE S THE CALCU LATIO N FOR LDL FRACT IONAT ION - THE LDL RESUL T WILL NOT BE REPOR ELYSIA. Not Available [facility] (Lab) [address] [place], [address], 01/23/2023 19:34:29 01/24/2001/23/2023 MAGNE SIUM magnesium 2.0 mg/dL 1.6-2. 3 Not Available [facility] (Lab) [address] [place], [address], 01/23/2023 19:34:31 01/24/2001/23/2023 VITAM IN D 25-HY DROXY vd25oh 38.4 NG/mL 30-100 Vitam in D Statu s: Defic ient: <20 ng/mL Insuf ficie nt: 20-29 ng/mL Suffi cient : 30-10 0 ng/mL Not Available [facility] (Lab) [address] [place], [address], 01/23/2023 20:12:07 01/24/20 23 01/23/2023 TSH W/REF MYRTLE FT4 TSH with reflex free T4 1.450 uIU/m L 0.465- 4.680 Not Available [facility] (Lab) [address] [place], [address], 01/23/2023 20:12:33 01/24/2001/23/2023 HEMOG LOBIN A1C HA1C 4.5 % 4.0-6. 0 Diabe sea Scree andrea Crite maria luisa: <5.7% Consi stent with absen ce of diabe sea 5.7-6 .4% Consi stent with incre ased risk for diabe sea (pred iabet es) >OR=6 .5% Consi stent with diabe sea REFER ENCE: Diabe sea Care 2016, 39(De La Torre ppl.1 ):s13 -s22 Not Available [facility] (Lab) [address] [place], [address], 01/23/2023 20:35:14 01/24/20 23 01/24/2023 VITAM IN B12 (NILO KIM ) vb12 421 pg/mL 239-93 1 Not Available [facility] (Lab) [address] [place], [address], 01/24/2023 04:01:35 01/24/2001/23/2023 FOLAT E, SERUM /PLAS MA folate 15.0 NG/mL 2.76-2 0.0 Not Available [facility] (Lab) [address] [place], [address], 01/23/2023 21:05:19 01/24/20 23 01/25/2023 H PYLOR I ABS IGG/I GA H pylori, IgA abs <9.0 units 0.0-8. 9 Negat alana <9.0 Equiv ocal 9.0 - 11.0 Posit alana >11.0 Not Available [facility] (Lab) [address] [place], [address], 01/25/2023 15:11:14 01/24/20 23 01/25/2023 H PYLOR I ABS IGG/I GA H pylori, IgG abs 0.15 index _valu e 0.00-0 .79 Negat alana <0.80 Equiv ocal 0.80 - 0.89 Posit alana >0.89 Perfo rmed at: [facility] [address] [place] [address] 12[address] Lab Direc tor: Des carcamo PhD, Phone : [phone] Not Available [facility] (Lab) [address] [place], [address], 01/25/2023 15:11:14 01/01/20 25 12/31/2024 urina lysis , dipst ick Leukocytes (reference range: negative evan/ l) Small Not Available [address], [address], 12/31/2024 16:24:20 01/01/20 25 12/31/2024 urina lysis , dipst ick Nitrite (reference rage: negative mg/dl) negati ve Not Available [address], [address], 12/31/2024 16:24:20 01/01/20 25 12/31/2024 urina lysis , dipst ick Urobilinogen (reference range: 0.2-1 mg/dl) 0.2 Not Available [address], [address], 12/31/2024 16:24:20 01/01/20 25 12/31/2024 urina lysis , dipst ick Protein (reference range: negative mg/dl) Negati ve Not Available [address], [address], 12/31/2024 16:24:20 01/01/20 25 12/31/2024 urina lysis , dipst ick pH (reference range: 5-7) 7.0 Not Available [address], [address], 12/31/2024 16:24:20 01/01/20 25 12/31/2024 urina lysis , dipst ick Blood (reference range: negative Delio/ l) Non-He molyze d: Trace Not Available [address], [address], 12/31/2024 16:24:20 01/01/20 25 12/31/2024 urina lysis , dipst ick Specific [place] (reference range: 1.005-1.030) 1.015 Not Available [address], [address], 12/31/2024 16:24:20 01/01/20 25 12/31/2024 urina lysis , dipst ick Ketone (reference range: negative mg/dl) Negati ve Not Available [address], [address], 12/31/2024 16:24:20 01/01/20 25 12/31/2024 urina lysis , dipst ick Bilirubin (reference range: negative mg/dl) Negati ve Not Available [address], [address], 12/31/2024 16:24:20 01/01/20 25 12/31/2024 urina lysis , dipst ick Glucose (reference range: negative mg/dl) Negati ve Not Available [address], [address], 12/31/2024 16:24:20 01/01/20 25 12/31/2024 urina lysis , dipst ick Appearance Clear Not Available [facility] [address] [facility], [place], [address], 12/31/2024 16:24:20 01/01/20 25 12/31/2024 urina lysis , dipst ick Color Yellow Not Available [facility] [address] [facility], [place], [address], 12/31/2024 16:24:20 09/29/19 24 09/29/2023 XR, ankle No observ ation record ed. [email or web address] [address], [place], [address], 09/30/2023 12:31:00 Result Notes None recorded. 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 Not Available [facility] 3 19:03:04 Anxiety 24764433 Active Not Available [facility] 3 19:03:05 Dysuria 50872705 Active Not Available [facility] 3 19:03:05 Contusion of toe 61988236 Active Not Available [facility] 3 19:03:05 Dyspareunia 09194173 Active Not Available [facility] 3 19:03:05 Attention deficit hyperactivity disorder 615909100 Active 2022 Not Available [facility] 3 19:03:04 Depressive disorder 93627171 Active 2022 Not Available [facility] 3 19:03:04 Gastroesophag eal reflux disease without esophagitis 191069246 Active 2022 Not Available [facility] 3 19:03:04 Obesity 456910452 Active 2022 Not Available [facility] 3 19:03:05 Chronic insomnia 435966912 Active 2022 Not Available [facility] 3 19:03:05 Fatigue 34922385 Active 2022 Not Available [facility] 3 19:03:05 Right lower quadrant pain 821510792 Active 2022 Not Available [facility] 3 19:03:04 Easy bruising 806962546 Active 2022 Not Available [facility] 3 19:03:05 Sacral back pain 41916854 Active 2022 Not Available [facility] 3 19:03:05 Sleep apnea 72421363 Active 2022 Not Available [facility] 3 19:03:05 Pain in pelvis 83798671 Active 2022 Not Available [facility] 3 19:03:04 Hyperlipidemi a 08647047 Active 2022 Not Available [facility] 3 19:03:05 Kidney stone 30297355 Active 2024 MICHEAL Ramesh [address] [place] [address] [address], [place], [address] , [facility] [employer] [facility] 5 15:05:15 Right flank pain 372971410 Active 2024 MICHEAL Ramesh [address], [address], [place], [address] , [employer] [facility] [employer] 5 16:24:15 Acute upper respiratory infection 07194198 Active 2024 MICHEAL Ramesh [address], [address], [place], [address] , [facility] [employer] [facility] 5 12:46:51 Problem Notes None recorded. Procedures Surgical History Date Name Laterality Status Provider Name and Address Organization Details Recorded Time 3 Date of Last Pap Smear completed Dodie Mercado RN [facility] [employer] [facility] 01/29/2023 10:40:45 D&c of cervical stump completed Cassandra Aguilar RN [facility] [employer] [facility] 01/08/2023 10:32:50 Imaging Results None recorded. Procedure Notes None recorded. Medical Equipment None Reported. Allergies Allergen ID Allergen Name Allergen Category Reaction Reaction Severity Criticality Documentation Date Start Date Code Code System Note Provider Name and Address Organization Details Recorded Time 61583 minocycli ne medicatio n hives Not available Not available 11/07/2022 6980 RxNorm Not Available [facility] 3 06:02:46 Medications Name Sig Start Date Stop Date Status Note LastModified by Organization Details LastModified Time binaxnow cov kit home sea 01/08 completed Not Available Not Available Not Available trazodone 50 mg tablet TAKE 1 TABLET BY MOUTH EVERY DAY AT BEDTIME 12/31 completed Not Available Not Available Not Available azithromy alcon 250 mg tablet TAKE 4 TABLETS BY MOUTH AT ONE TIME DIRECTED active Not Available Not Available No t Available ibuprofen 800 mg tablet active Not Available Not Available Not Available fluconazo le 150 mg tablet TK 1 T PO UTD FOR 1 DAY. 01/08 completed Not Available Not Available Not Available hydrocodo ne 5 mg-acetam inophen 325 mg tablet TAKE 1 TABLET BY MOUTH EVERY 6 HOURS NEEDED FOR PAIN 01/08 completed Not Available Not Available Not Available minocycli ne 100 mg capsule active Not Available Not Available Not Available phenazopy ridine 200 mg tablet TK 1 T PO TID PRN active Not Available Not Available No t Available sertralin e 100 mg tablet TAKE 1 TABLET BY MOUTH EVERY DAY DIRECTED 12/31 completed Not Available Not Available Not Available ciproflox acin 500 mg tablet TK 1 T PO Q 12 H active Not Available Not Available No t Available sulfameth oxazole 800 mg-trimet hoprim 160 mg tablet TK 1 T PO Q 12 H TAT active Not Available Not Available No t Available tramadol 50 mg tablet TAKE 1 TABLET BY MOUTH EVERY 6 TO 8 HOURS NEEDED FOR 7 DAYS 06/24 completed Not Available Not Available Not Available dextroamp hetamine sulfate 10 mg tablet Take 1 tablet every day by oral route. active Not Available Not Available No t Available butalbita l-acetami nophen-ca ffeine 50 mg-325 mg-40 mg tablet Take 1 tablet every 4 hours by oral route. active Not Available Not Available No t Available alprazola m 0.5 mg tablet TAKE ONE TABLET BY MOUTH EVERY 8 HOURS NEEDED active Not Available Not Available No t Available famotidin e 20 mg tablet TAKE 1 TABLET BY MOUTH TWICE DAILY DIRECTED 01/23 completed stopped d/t diarrhea Not Available Not Available Not Available amitripty line 25 mg tablet 1 po q hs active Not Available Not Available No t Available tamsulosi n 0.4 mg capsule TAKE 1 CAPSULE BY MOUTH EVERY DAY DIRECTED FOR 30 DAYS 06/24 completed Not Available Not Available Not Available dextroamp hetamine- amphetami ne ER 20 mg 24hr capsule,e xtend release 1 po daily active Not Available Not Available No t Available buspirone 10 mg tablet TAKE 1 TABLET BY MOUTH EVERY 12 HOURS NEEDED 02/05 completed Not Available Not Available Not Available hydrocodo ne 5 mg-acetam inophen 500 mg tablet active Not Available Not Available Not Available methylpre dnisolone 4 mg tablets in a dose pack TAKE 6 TABLETS ON DAY 1 DIRECTED ON PACKAGE AND DECREASE BY 1 TAB EACH DAY FOR A TOTAL OF 6 DAYS active Not Available Not Available No t Available sertralin e 50 mg tablet TAKE 1 TABLET BY MOUTH EVERY DAY 02/05 completed Not Available Not Available Not Available naproxen 500 mg tablet TAKE 1 TABLET BY MOUTH TWICE DAILY. TAKE WITH FOOD 01/08 completed Not Available Not Available Not Available amoxicill in 875 mg-potass ium clavulana te 125 mg tablet Take 1 tablet every 12 hours by oral route as directed for 7 days. 07/08 completed Not Available Not Available Not Available buspirone 15 mg tablet TAKE 1 TABLET BY MOUTH EVERY 12 HOURS NEEDED 12/31 completed Not Available Not Available Not Available neomycin- polymyxin -hydrocor t 3.5 mg-10,000 unit/mL-1 % ear drops,naldo p active Not Available Not Available Not Available dextroamp hetamine- amphetami ne ER 15 mg 24hr capsule,e xtend release Take 1 capsule every day by oral route. active Not Available Not Available No t Available minocycli ne 100 mg tablet Take 1 tablet every 12 hours by oral route. active Not Available Not Available No t Available nitrofura ntoin monohydra te/macroc rystals 100 mg capsule Take 1 capsule every 12 hours by oral route for 5 days. 01/08 completed Not Available Not Available Not Available Mirena 2012 active Not Available Not Available Not Avai lable Viibryd 40 mg tablet TAKE 1 TABLET BY MOUTH EVERY DAY 2014 active Not Available Not Available Not Avai lable Viibryd 10 mg (7)-20 mg (7)-40 mg(16) tablets in a dose pack Take 1 tablet by oral route. 2013 active Not Available Not Available Not Avai lable BinaxNOW COVID-19 Ag Self Test kit TEST DIRECTED TODAY 01/08 completed Not Available Not Available Not Available Wegovy 0.25 mg/0.5 mL subcutane ous pen injector Inject by subcutan eous route for 30 days. 05/01 completed Not Available Not Available Not Available [employer] 0.5 mg/0.5 mL subcutane ous pen injector Inject 0.5 mg every week by subcutan eous route as directed for 30 days. 12/31 completed Not Available Not Available Not Available Vitals Date Recorded Body weight Body mass index (BMI) Body height Body temperature Heart rate Respiratory rate Oxygen saturation Pain severity - 0-10 verbal numeric rating [Score] - Reported Systolic And Diastolic Provider Name and Address Organization Details Last Updated DateTime 5 284564. 34 g 37.2 kg/m2 172.72 cm 97.5 [degF] 87 /min 20 /min 97 % 5 172/120 mm[Hg] Dodie Mercado RN [place] [email or web address] [facility] 5 14:43:06 Date Recorded Body height Body mass index (BMI) Body weight Body temperature Heart rate Respiratory rate Oxygen saturation Pain severity - 0-10 verbal numeric rating [Score] - Reported Systolic And Diastolic Provider Name and Address Organization Details Last Updated DateTime 3 172.72 cm 34.7 kg/m2 746583. 41 g 96.9 [degF] 95 /min 16 /min 95 % 5 148/98 mm[Hg] Dodie Mercado RN [facility] [email or web address] [facility] 3 10:37:31 Date Recorded Body height Body mass index (BMI) Body weight Body temperature Heart rate Oxygen saturation Systolic And Diastolic Provider Name and Address Organization Details Last Updated DateTime 3 172.72 cm 34.8 kg/m2 907521. 65 g 98.3 [degF] 94 /min 97 % 124/74 mm[Hg] Cassandra Aguilar RN [facility] [employer] [facility] 3 15:46:58 Date Recorded Body height Body mass index (BMI) Body weight Body temperature Heart rate Respiratory rate Oxygen saturation Systolic And Diastolic Provider Name and Address Organization Details Last Updated DateTime 3 172.72 cm 35.4 kg/m2 444420. 02 g 98.1 [degF] 95 /min 16 /min 99 % 132/72 mm[Hg] Rolando Vazquez [facility] [email or web address] [facility] 3 12:18:31 Date Recorded Body height Body mass index (BMI) Body weight Body temperature Heart rate Respiratory rate Oxygen saturation Pain severity - 0-10 verbal numeric rating [Score] - Reported Systolic And Diastolic Provider Name and Address Organization Details Last Updated DateTime 5 172.72 cm 38.3 kg/m2 007706. 28 g 97.3 [degF] 98 /min 24 /min 98 % 4 150/100 mm[Hg] Dodie Mercado RN [facility] [email or web address] [facility] 5 12:37:12 Social History Question Answer Notes LastModified by Organization Details LastModified Time Tobacco Smoking Status Never Smoker MARLENY Galaviz, [facility] [email or web address] [facility] 05/01/2023 12:13:38 Do You Have An Advance Directive? No [email or web address] Information not available 01/08/2023 Is Blood Transfusion Acceptable In An Emergency? Yes Information not available 05/01/2023 What Is Your Level Of Caffeine Consumption? Occasional [email or web address] Information not available 01/08/2023 What Is Your Code Status? Full Code Information not available 05/01/2023 In The 14 Days Before Symptom Onset, Have You Had Close Contact With A Laboratory-confi rmed COVID-19 While That Case Was Ill? No Information not available 05/01/2023 In The 14 Days Before Symptom Onset, Have You Had Close Contact With A Person Who Is Under Investigation For COVID-19 While That Person Was Ill? No Information not available 05/01/2023 What Type Of Diet Are You Following? REGULAR Information not available 01/08/2023 What Is The Highest Grade Or Level Of School You Have Completed Or The Highest Degree You Have Received? [id number] Information not available 05/01/2023 Have There Been Any Changes To Your Family Or Social Situation? No Information not available 05/01/2023 Do You Use Insect Repellent Routinely? Yes Information not available 05/01/2023 Where Do You Live? [facility] Information not available 05/01/2023 Do You Have A Medical Power Of Primary School Principal? No Information not available 05/01/2023 How Many Children Do You Have? 1 Adopting 2 Daughters Information not available 05/01/2023 Do You Have Any Pets? Yes Information not available 05/01/2023 What Is Your Relationship Status? [email or web address] Information not available 01/08/2023 Do You Use Your Seat Belt Or Car Seat Routinely? Yes Information not available 05/01/2023 Do You Have Smoke And Carbon Monoxide Detectors In Your Home? Yes Information not available 05/01/2023 Are You Passively Exposed To Smoke? Yes Information not available 05/01/2023 Are There Any Smokers In Your House? Yes Information not available 05/01/2023 Do You Participate In Social Media? No Information not available 05/01/2023 Do You Use Sunscreen Routinely? Yes Information not available 05/01/2023 Have You Recently Traveled Abroad? No Information not available 05/01/2023 Sex: Unknown Functional Status Question Answer Note LastModified by Organizat ion Details LastModified Time Do you use any illicit or recreational drugs? No Information not available 05/01/2023 What is your level of alcohol consumption? 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 Moderate walks [email or web address] Information not available 01/08/2023 Mental Status Question Answer Note LastModified by Organizat ion Details LastModified Time Do you feel stressed (tense, restless, nervous, or anxious, or unable to sleep at night)? [id number] goes to therapy [email or web address] Information not available 06/24/2025 Family History Relationship Description Onset Age of this Age Resolved Age Notes LastModified by Organization Details LastModified Time Unspecified Relation Adult attention deficit hyperactivit y disorder many family member s Not available 05/01/2023 12:13:37 Father Hypertensive disorder Not available 2022 10:28:36 Medical History Condition Response OTHER # 1 Y OBESITY Y ANXIETY DISORDER Y INSOMNIA Y Gall Stones Y Gynecological History Statement/Question Response STIs/STDs Y Abnormal Pap Y Date of Last Pap Smear 01/29/2023 Current Control Method IUD Age at Menarche 10 Obstetrics History GPAL:G 0 P 0 0 0 0 Past Encounters Encounter ID Performer Location Encounter Start Date Encounter Closed Date Diagnosis/Indication Diagnosis SNOMED-CT Code Diagnosis ICD10 Code Diagnosis IMO Codes Diagnosis Note [id number] Shaun Naranjo MD [address] [address] 01/08/2023 10:21:05 01/08/2023 10:52:21 Anxiety disorder 815620956 F41.9 Attention deficit hyperactivity disorder 751120847 F90.9 Depressive disorder 3548 9007 F32.A Gastroesop hageal reflux disease without esophagitis 871653176 K21.9 Obesity 124488462 E66.9 [id number] Shaun Naranjo MD [address] [address] 01/23/2023 10:26:57 01/23/2023 10:54:53 Adult health examination 660328244 Z00.00 Gastroesop hageal reflux disease without esophagitis 129578508 K21.9 Obesity 751916565 E66.9 Chronic insomnia 8200459 04 F51.04 Fatigue 04141805 R53.83 Right lowe r quadrant pain 965551383 R10.31 Easy bruising 080493605 R58 Sacral back pain 3409412 3 M54.50 Sleep apnea 22609407 G47 .30 [id number] Dodie Abraham NP [address] [address] 01/29/2023 10:26:57 01/29/2023 11:27:00 Gynecologic examination 85060137 Z01.419 Encouraged well balanced meals, active lifestyle, and routine vision and dental appts. Pain in pelvis 61940176 R10.2 Get US ordered per PCP Jose A. Could be right ovarian cyst. Has IUD mirena and plans for removal per GYNecologi st after March 2023. Patient is aware that options for BC include Pill, nuvaring, condoms, depo shot after IUD removal. [id number] Shaun Naranjo MD [address] [address] 02/05/2023 15:41:09 02/05/2023 16:22:28 Gastroesophageal reflux disease without esophagitis 164283415 K21.9 Obesity 068140539 E66.9 Chronic insomnia 5617546 04 F51.04 Fatigue 56383079 R53.83 Right lowe r quadrant pain 151772804 R10.31 Easy bruising 479316089 R58 Sacral back pain 9034812 3 M54.50 Sleep apnea 51620591 G47 .30 Hyperlipidemia 73794641 E78.5 Depressive disorder 3548 9007 F32.A Anxiety disorder 4560829 06 F41.9 [id number] Shaun Naranjo MD [address] [address] 05/01/2023 12:12:26 05/01/2023 12:37:20 Hyperlipidemia 78130947 E78.5 Gastroesop hageal reflux disease without esophagitis 083903117 K21.9 Obesity 551788019 E66.9 Chronic insomnia 1055131 04 F51.04 Fatigue 82941063 R53.83 Right lowe r quadrant pain 386907886 R10.31 Easy bruising 961691281 R58 Sacral back pain 4568811 3 M54.50 Sleep apnea 80290666 G47 .30 Depressive disorder 3548 9007 F32.A Anxiety disorder 1939677 06 F41.9 [id number] MICHEAL Ramesh [facility] [address] [place] [id number] 12/31/2024 14:26:44 12/31/2024 15:34:47 Kidney stone 31873048 N20.0 Hx of stones,Cathleen n is right sided, hematuria. Advised to FU with ER for worsening symptoms Pain in pelvis 51796979 R10.2 Notes pain with intercours e, right sided pelvic pain, will come in spurts - has dropped to her knees with pain. [id number] Shaun Naranjo MD [facility] [address] [place] [address] 06/24/2025 12:22:07 06/24/2025 13:04:03 Acute upper respiratory infection 27031942 J06.9 2456 Fever x 5 daysGenera lized [facility] Concerns Section Related Observation LastModified by Organization Detai ls LastModified Time None Recorded Concern Status LastModified by Organization Details LastModified Time None Recorded Advance Directives Directive N: Payers Insurance Date Sequence Insurance Name Policy Number Policy Shen Covered Member ID Shen Member ID Guarantor Name 12/31/2024 1 [facility] (MEDICAID HMO) [id number] Amparo Zavala [id number] Amparo Zavala 12/31/2024 1 [facility] () Amparo Zavala [id number] Amparo Zavala 12/31/2024 1 [place] [facility] PRIOR TO 04/09/2025 (MEDICAID REPLACEMENT - HMO) [id number] Amparo Zavala [id number] Amparo Zavala 12/31/2024 2 [place] [employer] [facility] [employer] [facility] Amparo Zavala [id number] Amparo Zavala 06/24/2025 1 [place]) [id number] 1 Alba [id number] Amparo A Lucas Notes Date Note Type Note Provider Name and Address Organization Details Recorded Time 01/29/2023 text/html Here for wwe. Baby born 13 years ago, 2011.[facility] [place] [facility] [place]Cramps in abdomen at random. No periods since having the mirena. History of ovarian cysts since period started at age 10 yo.Interested in having mirena removed after March as she has a vacation planned. Doesn't want to be on BCP, states that is how she got with son. Dodie Abraham NP [address] [facility] [facility] [address], [place], [address], [employer] 01/29/2023 11:14:00 02/05/2023 text/html Pt is here for f/u on her annual labs, x-ray and US. Doing overall better than last visit. Denies any problem with meds. Pt has not gone for US and x-ray yet. Pt wants to try We[employer]. Denies any mood swings/SI/HI. C/o RLQ area pain, about 2-3 times per week for last 3-4 months. Denies any other symptoms. C/o tailbone area pain for last 7-8 months. Pt had a fall from a slide at that time and since than, she has this pain. Pt is seeing a Chiropractor for this. C/o easy bruising for last several months. Shaun Naranjo MD [address] [facility] [facility] [address], [place], [address], [employer] 02/05/2023 16:02:46 05/01/2023 text/html Pt is here for f/u on her x-ray, US and chronic conditions. Doing overall better than last visit. Denies any problem with meds. Pt has not gone for US and x-ray yet. Denies any mood swings/SI/HI. C/o RLQ area pain, about 2-3 times per week for last 3-4 months. Denies any other symptoms. C/o tailbone area pain for last 7-8 months. Pt had a fall from a slide at that time and since than, she has this pain. Pt is seeing a Chiropractor for this. C/o easy bruising for last several months. Shaun Naranjo MD [address] [facility] [facility] [address], [place], [address], [employer] 05/01/2023 12:29:32 12/31/2024 text/html Amparo Zavala is a 29 year old female patient here today for right sided flank pain She notes right sided flank pain x 24 hrs, had gross hematuria. Pain was severe last night that caused her to cry. She has had kidney stones in the past. Concerns with chronic pelvic pain, stabbing pains. She does have a IUD and feels that it may be in the wrong spot. She notes pain with intercourse. MICHEAL Ramesh [address] [facility] [facility] [address], [place], [address], [employer] 12/31/2024 16:22:09 06/24/2025 text/html Amparo Zavala is a 30 year old female patient here today for a sick visit She began with a scratchy throat on Saturday, began to have a fever, cough, fatigue, headache, body aches MICHEAL Ramesh [address] [facility] [facility] [address], [place], [address], [employer] 06/24/2025 14:55:24 OBGyn Episode No OBEpisode recorded.
--- OUTSIDE RECORDS SUMMARY | 2025-08-10 16:45 | XMS_ITS | Continuity of Care Document ---
Author Organization [place] - [facility], [facility] [place] [facility] Address [address] [place] [address] Care Team Providers Care Hemstitcher Name Role Phone SHAUN NARANJO Primary Care Provider Assessment No assessment recorded. Plan of Treatment Reminders Order Date Submit Date Provider Last Modified By Organization Details Last Modified Time Details Appointments None recorded. Lab None recorded. Referral None recorded. Procedures None recorded. Surgeries None recorded. Imaging None recorded. Medication Orders Medrol (Andrei) 4 mg tablets in a dose pack 2024 [facility] #[id number], [address] [place], [address], 12:47:40 amoxicillin 875 mg-potassiu m clavulanate 125 mg tablet 2024 025 [facility] #[id number], [address] [place], [address], 5 05:01:45 Patient TargetsNo targets recorded. Patient InstructionsNo instructions recorded. Reason for Referral None Reported. 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 Not Available [facility] 3 19:03:04 Anxiety 85639066 Active Not Available [facility] 3 19:03:05 Dysuria 16002779 Active Not Available [facility] 3 19:03:05 Contusion of toe 13807807 Active Not Available [facility] 3 19:03:05 Dyspareunia 25519244 Active Not Available [facility] 3 19:03:05 Attention deficit hyperactivity disorder 843314097 Active 2022 Not Available [facility] 3 19:03:04 Depressive disorder 28817969 Active 2022 Not Available [facility] 3 19:03:04 Gastroesophag eal reflux disease without esophagitis 119528717 Active 2022 Not Available [facility] 3 19:03:04 Obesity 428408110 Active 2022 Not Available [facility] 3 19:03:05 Chronic insomnia 717802092 Active 2022 Not Available [facility] 3 19:03:05 Fatigue 74633357 Active 2022 Not Available [facility] 3 19:03:05 Right lower quadrant pain 247346740 Active 2022 Not Available [facility] 3 19:03:04 Easy bruising 517285383 Active 2022 Not Available [facility] 3 19:03:05 Sacral back pain 16337516 Active 2022 Not Available [facility] 3 19:03:05 Sleep apnea 80874622 Active 2022 Not Available [facility] 3 19:03:05 Pain in pelvis 22108610 Active 2022 Not Available [facility] 3 19:03:04 Hyperlipidemi a 46734837 Active 2022 Not Available [facility] 3 19:03:05 Kidney stone 80437406 Active 2024 MICHEAL Ramesh [address] [facility], [place], [address] , [facility] [employer] [facility] 5 15:05:15 Right flank pain 377114787 Active 2024 Corazon WilkinsonMICHEAL [address] [facility], [facility] [address], [place], [address] , [facility] [employer] [facility] 5 16:24:15 Acute upper respiratory infection 76182655 Active 2024 Corazon MorrisSURY jamilP [address] [facility], [facility] [address], [place], [address] , [facility] [employer] [facility] 5 12:46:51 Problem Notes None recorded. Procedures Surgical History Date Name Laterality Status Provider Name and Address Organization Details Recorded Time 3 Date of Last Pap Smear completed Dodie Mercado RN [facility] [employer] [facility] 01/29/2023 10:40:45 D&c of cervical stump completed Cassandra Aguilar RN [facility] [employer] [facility] 01/08/2023 10:32:50 Imaging Results None recorded. Procedure Notes None recorded. Medical Equipment None Reported. Allergies Allergen ID Allergen Name Allergen Category Reaction Reaction Severity Criticality Documentation Date Start Date Code Code System Note Provider Name and Address Organization Details Recorded Time 06540 minocycli ne medicatio n hives Not available Not available 11/07/2022 6980 RxNorm Not Available [employer] 3 06:02:46 Medications Name Sig Start Date [...] Available Not Available Vitals Date Recorded Body height Body mass index (BMI) Body weight Body temperature Heart rate Respiratory rate Oxygen saturation Pain severity - 0-10 verbal numeric rating [Score] - Reported Systolic And Diastolic Provider Name and Address Organization Details Last Updated DateTime 5 172.72 cm 38.3 kg/m2 674861. 28 g 97.3 [degF] 98 /min 24 /min 98 % 4 150/100 mm[Hg] Dodie Mercado RN [facility] [employer] 5 12:37:12 Social History Question Answer Notes LastModified by Organization Details LastModified Time Tobacco Smoking Status Never Smoker MARLENY Galaviz, [employer] [facility] [employer] 05/01/2023 12:13:38 Do You Have An Advance Directive? No Information not available 01/08/2023 Is Blood Transfusion Acceptable In An Emergency? Yes Information not available 05/01/2023 What Is Your Level Of Caffeine Consumption? Occasional Information not available 01/08/2023 What Is Your [...] Type Of Diet Are You Following? REGULAR [email or web address] Information not available 01/08/2023 What Is The Highest Grade Or Level Of School You Have Completed Or The Highest Degree You Have Received? [id number] Information not available 05/01/2023 Have There Been Any Changes To Your Family Or Social Situation? No Information not available 05/01/2023 Do You Use Insect Repellent Routinely? Yes Information not available 05/01/2023 Where Do You Live? [facility] Information not available 05/01/2023 Do You Have A Medical Power Of Senior Accounts Payable Clerk? No Information not available 05/01/2023 How Many Children Do You Have? 1 Adopting 2 Daughters Information not available 05/01/2023 Do You Have Any Pets? Yes Information not available 05/01/2023 What Is Your Relationship Status? [email or web address] Information not available 01/08/2023 Do You Use [...] Functional Status Question Answer Note LastModified by [employer] Details LastModified Time Do you use any illicit or recreational drugs? No Information not available 05/01/2023 What is your level of alcohol consumption? 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 Moderate walks [email or web address] Information not available 01/08/2023 Mental Status Question Answer Note LastModified by [employer] Details LastModified Time Do you feel stressed (tense, restless, nervous, or anxious, or unable to sleep at night)? [id number] goes to therapy [email or web address] Information not available 06/24/2025 Family History Relationship Description Onset Age of this Age Resolved Age Notes LastModified by Organization Details LastModified Time Unspecified Relation Adult attention deficit hyperactivit y disorder many family member s Not available 05/01/2023 12:13:37 Father Hypertensive disorder [email or web address] Not available 2022 10:28:36 Medical History Condition [...] ICD10 Code Diagnosis IMO Codes Diagnosis Note [id number] Shaun Naranjo MD [facility] [address] [address] 06/24/2025 12:22:07 06/24/2025 13:04:03 Acute upper respiratory infection 15236643 J06.9 2456 Fever x 5 daysGenera lized [facility] Concerns Section Related Observation LastModified by Organization Detai ls LastModified Time None Recorded Concern Status LastModified by Organization Details LastModified Time None Recorded Payers Encounter Date Sequence Insurance Name Policy Number Policy Shen Covered Member ID Shen Member ID Guarantor Name 06/24/2025 1 [employer] ([place]) [id number] Alba Evangelista [id number] Amparo Zavala Notes Date Note Type Note Provider Name and Address Organization Details Recorded Time 06/24/2025 text/html Amparo Zavala is a 30 year old female patient here today for a sick visit She began with a scratchy throat on Saturday, began to have a fever, cough, fatigue, headache, body aches Corazon Wilkinson, [employer]IS[employer] WORKER [address] [facility] [address], [place], [address], [facility] [employer] 06/24/2025 14:55:24 OBGyn Episode No OBEpisode recorded.
--- NOTE | 2025-08-10 19:18 | ED_ITS ---
HPI - General Adult General Chief complaint: Extremity Injury, Lower Stated complaint: Fall on ice-left leg injury Time Seen by Provider: 08/10/25 16:19 History of Present Illness HPI narrative: 30-year-old female presenting after a fall yesterday. She reports she fell forward on her left knee and felt a pop. She states that she is still able ambulate with a limp. Denies hitting her head and numbness/tingling. She is not on blood thinners. Related Data Home Medications ?Medication ?Instructions ?Recorded ?Confirmed ?Last Taken ?Type sertraline 100 mg tablet 100 mg PO DAILY 09/29/23 Unknown History Allergies Allergy/AdvReac Type Severity Reaction Status Date / Time ondansetron Allergy Intermediate THROAT Verified 09/29/23 12:12 SWELLING citalopram Allergy Unknown Unknown Verified 09/29/23 12:12 eletriptan Allergy Unknown Unknown Verified 09/29/23 12:12 sumatriptan Allergy Unknown Unknown Verified 09/29/23 12:12 Review of Systems Review of Systems: All systems reviewed & are unremarkable except as noted in HPI and below PMFSH Family History Family History Other Family history non-contributory Social History Social History (Reviewed 09/29/23 @ 12:31 by Perlita Alexander, MINCING MACHINE OPERATOR, PROPERTY PRESERVATION SPECIALIST) Smoking status: Never smoker Exam Narrative: GENERAL: Well-appearing, well-nourished, and in no acute distress. HEAD: Normocephalic, atraumatic. EYES: PERRLA and EOMI. ENT: Nares clear, no rhinorrhea or epistaxis. Mucous membranes moist. Oropharynx without tonsillar hypertrophy exudate or other lesions. Bilateral TMs pearly silveira non-bulging NECK: Supple. No adenopathy or masses. No carotid bruits or JVD CHEST: Clear to auscultation. No respiratory distress. No wheezes rales or rhonchi HEART: Regular rate and rhythm. No murmur heard. Normal peripheral pulses. ABDOMEN: Soft, nontender, nondistended, normal active bowel sounds. EXTREMITIES: Ecchymosis measuring approximately 9 x 7 cm located below and slightly medial of the left patella. No edema. Maintains 5/5 strength and good range of motion. SKIN: Warm, dry, no rash. NEURO: No focal deficits. Alert and oriented x3. PSYCH: Normal mood and affect Course Vital Signs Vital signs: Vital Signs Temperature 98 F 08/10/25 15:47 Pulse Rate 83 08/10/25 15:47 Respiratory Rate 17 08/10/25 15:47 Blood Pressure 155/117 H 08/10/25 15:47 Pulse Oximetry 99 08/10/25 15:47 Oxygen Delivery Room Air 08/10/25 15:47 Temperature 98 F 08/10/25 15:47 Pulse Rate 83 08/10/25 15:47 Respiratory Rate 17 08/10/25 15:47 Blood Pressure 155/117 H 08/10/25 15:47 Pulse Oximetry 99 08/10/25 15:47 Oxygen Delivery Room Air 08/10/25 15:47 MDM MDM Narrative Medical decision making narrative: 30-year-old female presenting after a fall yesterday. She reports she fell forward on her left knee and felt a pop. She states that she is still able ambulate with a limp. Denies hitting her head and numbness/tingling. She is not on blood thinners. Patient has ecchymosis noted inferior medial to the patella without swelling. She states that she iced and elevated her knee yesterday which significantly improved her swelling. Upon my initial assessment patient is nontoxic sitting with her left leg elevated. Left lower extremity neurovascular intact. Imaging demonstrates no acute abnormalities. During my initial assessment patient noted mild left foot pain on top of the knee pain. I offered imaging of her foot however patient declined stating that if the pain continues that she will follow-up with her PCP as she is in a hurry to get home for her son's birthday. Patient was provided with an Pranay wrap. She declined crutches. She will be provided with an orthopedic referral. Differential diagnosis and treatment plan were discussed with the patient. Patient agrees with discussion and after shared medical decision making agrees with plan of care. All questions were answered to the patient's satisfaction. The patient is appropriate for outpatient treatment and follow-up. Given reasons to return. Differential Diagnosis Differential Diagnosis: Differential diagnostic considerations for fall injuries include syncope, concussion with loss of consciousness, concussion without loss of consciousness, vertebral fracture, extremity fracture/dislocation. Medical Records I have reviewed the following patient records and this information was taken into consideration when formulating the assessment and plan.: previous labs Imaging Data Attestation: I personally reviewed and interpreted this imaging study as follows: Radiologist's impression: ITS Impressions Ankle X-Ray 08/10/25 16:21 IMPRESSION: 1: NO ACUTE BONE OR JOINT ABNORMALITY IDENTIFIED. Hip X-Ray 08/10/25 16:26 IMPRESSION: 1: NO ACUTE BONE OR JOINT ABNORMALITY IDENTIFIED. Knee X-Ray 08/10/25 16:27 IMPRESSION: 1: NO ACUTE BONE OR JOINT ABNORMALITY IDENTIFIED. Discharge Plan Discharge Clinical Impression: Acute pain of left knee, Fall Patient Disposition: Home Condition: Stable Instructions: Antibiotic Form Additional Instructions: Return to the ER if you experience fever, redness and swelling of your extremity, numbness or any other symptoms that are concerning to you Wear PRANAY wrap. Weight-bearing as tolerated. Ice and elevate extremity. Take anti-inflammatories (Aleve, Ibuprofen, Naproxen, etc) or Tylenol as needed for pain. Follow-up with Orthopedics if injury does not improve. Follow up with your doctor for any other general concerns. Patient Language: Nauruan Prescriptions: No Action sertraline 100 mg tablet 100 mg PO DAILY Follow-up/Referrals: Jose A,MD Shaun [Primary Care Provider, Unknown] Linus Hoyos MD [Physician, Orthopedics]
== END 2025-08-10 17:58 | disposition home or self-care (01) ==
LOC: ANHED 17:45
PROVIDERS: PCP Family Medicine
DX: S89.92XA Unspecified injury of left lower leg, initial encounter (principal); W00.0XXA Fall on same level due to ice and snow, initial encounter
CPT/HCPCS: 73502; 73562; 73600; 99284